=== PATIENT | male | born 1985 | race American Indian/Alaskan Native ===

== ENCOUNTER 2017-06-03 18:30 | Emergency (ER) | payer OTHER ==
[2017-06-03 19:10] VITALS: BP 136/84; PULSE 94; RESP 16; TEMP 98.1; O2SAT 98
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
== END 2017-06-03 20:37 | disposition home or self-care (01) ==
LOC: H.ER 18:30
DX: M54.9 Dorsalgia, unspecified (principal); V43.52XA Car driver injured in collision with other type car in traffic accident, initial encounter; Y92.410 Unspecified street and highway as the place of occurrence of the external cause